=== PATIENT | male | born 1960 | race Caucasian/White ===

== ENCOUNTER 2024-03-20 06:27 | Day surgery (SDC) | payer OTHER ==
[2024-03-15 16:19] VITALS: BMI 25.1
[2024-03-20] MEDS ORDERED: EPINEPHrine 1:1,000 1,000 MCG/ML ML ONE (07:24)
[2024-03-20] MEDS ORDERED: BUPIVACAINE HCL/EPINEPHRINE/PF 30 ML VIAL IJ ONE (07:24)
[2024-03-20] MEDS ORDERED: PROPOFOL 20 ML ONE ×2 (08:07→09:22)
[2024-03-20] MEDS ORDERED: MIDAZOLAM HCL 2 MG/2 ML SINGLE DOSE VIAL ONE (08:08)
[2024-03-20] MEDS ORDERED: oxyCODONE HCL 5 MG TABLET PO PRN ×2 (08:19)
[2024-03-20] MEDS ORDERED: ONDANSETRON 4 MG/2 ML VIAL IVPUSH PRN (08:19)
[2024-03-20] MEDS ORDERED: ACETAMINOPHEN 325 MG TABLET (FP) PO PRN (08:19)
[2024-03-20] MEDS ORDERED: DEXAMETHASONE SOD PHOSPHATE 10 MG/1 ML VIAL ONE (08:21)
[2024-03-20] MEDS ORDERED: ACETAMINOPHEN INJECTION 100 ML IVPB ONE (08:21)
[2024-03-20] MEDS ORDERED: BUPIVACAINE HCL/PF 0.5% (5 MG/ML) 30 ML VIAL IJ ONE (08:21)
[2024-03-20] MEDS ORDERED: LACTATED RINGERS SOLUTION 1,000 ML IV SCH (08:30)
[2024-03-20] MEDS ORDERED: ceFAZolin SODIUM 1 GM VIAL ONE (08:53)
[2024-03-20] MEDS ORDERED: ONDANSETRON 4 MG/2 ML VIAL ONE ×2 (09:06→10:02)
[2024-03-20] MEDS ORDERED: DEXAMETHASONE SOD PHOSPHATE 4 MG/1 ML VIAL ONE ×2 (09:06→09:14)
[2024-03-20] MEDS ORDERED: KETOROLAC TROMETHAMINE 30 MG/1 ML VIAL ONE (09:06)
[2024-03-20] MEDS: BUPIVACAINE HCL/EPINEPHRINE/PF 30 ML VIAL IJ ONE (09:13)
[2024-03-20] MEDS ORDERED: FENTANYL CITRATE/PF 50 MCG/ML VIAL ONE ×4 (10:02→10:21)
[2024-03-20] MEDS ORDERED: HYDROmorphone HCL/PF 1 MG/ML VIAL ONE (10:22)
[2024-03-20] MEDS ORDERED: HYDROmorphone HCl 2 MG/ML VIAL IVPUSH ONE (11:15)
[2024-03-20] MEDS ORDERED: oxyCODONE HCL 5 MG TABLET ONE (11:33)
[2024-03-20 11:41] VITALS: RESP 18; TEMP 98
[2024-03-20 15:23] VITALS: BP 110/72; PULSE 74
== END 2024-03-20 14:45 | disposition home or self-care (01) ==
LOC: FASU 06:27
PROVIDERS: ATTEND Orthopaedic Surgery
PROC: 0RBJ4ZZ Excision of Right Shoulder Joint, Percutaneous Endoscopic Approach (ICD-10-PCS; principal; 2024-03-20 09:13)
DX: M75.51 Bursitis of right shoulder (principal)
CPT/HCPCS: 94760; J0131; J1100